=== PATIENT | male | born 1985 | race Caucasian/White ===

== ENCOUNTER 2019-04-30 00:58 | Emergency (ER) | payer SELFPAY ==
--- NOTE | 2019-04-30 01:37 | PDOC ---
History of Present Illness - General Stated Complaint: VOMIT AND DIARRHEA Time Seen by Provider: 04/30/19 01:37 History Source: Patient Exam Limitations: No Limitations - History of Present Illness Initial Comments: 34 year old male with no PMH, admitted to using marijuana presented to ED for nausea/vomiting/diarrhea since last night. Pt reported prior to development of symptoms he ingested a large amount of varied leftovers from Thanksgiving. Pt reported 4-5 episodes of vomiting, nonbloody. Pt reported his diarrhea is loose/ watery brown stool. Pt denied abdominal surgical history, recent travel outside the country, sick contact, abdominal pain, back pain, fever. Pt reported he did use Marijuana yesterday. Pt denied ETOH use or abuse. ROS General: denied fever, chills, generalized weakness. HEENT: denied sore throat, rhinorrhea, ear pain. Cardiovascular: denied chest pain, palpitations, syncope, diaphoresis. Respiratory: denied shortness of breath, cough, sputum production, hemoptysis. Gastrointestinal: admitted tonausea, vomiting, diarrhea. denied abdominal pain, constipation, blood in stool. Genitourinary: denied dysuria, increased urinary frequency, hematuria, urinary incontinence, flank pain. Back: denied back pain. Musculoskeletal: denied joint pain, muscle pain, joint swelling. Neurological: denied headache, dizziness, numbness, tingling, weakness. Integumentary: denied rash, laceration, abrasion. Hematologic/Lymphatic: denied bruising or bleeding. PE Constitutional: Well-nourished, Well-developed, appearing stated age. HEENT: head is normocephalic, atraumatic. EOMI. PERRLA. Neck: supple. Full ROM. Cardiovascular: regular heart rhythm. no murmurs. no pericardial friction rub. Respiratory: clear to auscultation bilaterally. no crackles, rhonchi or wheezing. no stridor. Gastrointestinal: soft, nontender. normal bowel sounds. no rebound, guarding, masses. Extremities: peripheral pulses intact. no lower extremity edema. Neurological: CN 2-12 grossly intact. moves all four extremities. Psych: awake, alert, oriented x3. follows commands. answers questions appropriately. Past History - Past Medical History Allergies/Adverse Reactions: Allergies Allergy/AdvReac Type Severity Reaction Status Date / Time No Known Allergies Allergy Verified 04/30/19 02:14 ED Treatment Course - LABORATORY CBC & Chemistry Diagram: 04/30/19 02:00 04/30/19 02:00 Medical Decision Making - Medical Decision Making 34 year old male with above PMH presented to ED for nausea/vomiting/diarrhea since last night after ingesting left over thanksgiving food, also uses marijuana recreationally. Initial Vital Signs Temp Pulse Resp BP Pulse Ox 97.9 F 74 18 135/85 100 04/30/19 01:40 04/30/19 01:40 04/30/19 01:40 04/30/19 01:40 04/30/19 01:40 Afebrile. No tachycardia. No tachypnea. Mild hypertension. No hypoxia on room air. Labs ordered: CBC, CMP, mag Imaging ordered: none Medications ordered: pepcid, maalox, zofran, normal saline bolus 1000 cc once 04/30/19 03:16 CBC WBC 8.9 K/mm3 (4.0-10.0) 04/30/19 02:00 RBC 4.74 M/mm3 (4.00-5.60) 04/30/19 02:00 Hgb 13.9 GM/dL (11.7-16.9) 04/30/19 02:00 Hct 41.4 % (35.4-49) 04/30/19 02:00 MCV 87.3 fl (80-96) 04/30/19 02:00 MCH 29.3 pg (25.7-33.7) 04/30/19 02:00 MCHC 33.6 g/dl (32.0-35.9) 04/30/19 02:00 RDW 12.9 % (11.9-15.9) 04/30/19 02:00 Plt Count 197 K/MM3 (134-434) 04/30/19 02:00 MPV 8.7 fl (7.5-11.1) 04/30/19 02:00 Absolute Neuts (auto) 6.4 K/mm3 (1.5-8.0) 04/30/19 02:00 Neutrophils % 71.7 % (42.8-82.8) 04/30/19 02:00 Lymphocytes % 20.8 % (8-40) 04/30/19 02:00 Monocytes % 4.9 % (3.8-10.2) 04/30/19 02:00 Eosinophils % 2.0 % (0-4.5) 04/30/19 02:00 Basophils % 0.6 % (0-2.0) 04/30/19 02:00 Nucleated RBC % 0 % (0-0) 04/30/19 02:00 CMP Sodium 142 mmol/L (136-145) 04/30/19 02:00 Potassium 3.9 mmol/L (3.5-5.1) 04/30/19 02:00 Chloride 108 mmol/L (98-107) H 04/30/19 02:00 Carbon Dioxide 29 mmol/L (21-32) 04/30/19 02:00 Anion Gap 5 MMOL/L (8-16) L 04/30/19 02:00 BUN 12.1 mg/dL (7-18) 04/30/19 02:00 Creatinine 0.8 mg/dL (0.55-1.3) 04/30/19 02:00 Est GFR (CKD-EPI)AfAm 136.03 04/30/19 02:00 Est GFR (CKD-EPI)NonAf 117.37 04/30/19 02:00 Random Glucose 92 mg/dL (74-106) 04/30/19 02:00 Calcium 9.5 mg/dL (8.5-10.1) 04/30/19 02:00 Magnesium 1.9 mg/dL (1.8-2.4) 04/30/19 02:00 Total Bilirubin 0.7 mg/dL (0.2-1) 04/30/19 02:00 AST 12 U/L (15-37) L 04/30/19 02:00 ALT 24 U/L (13-61) 04/30/19 02:00 Alkaline Phosphatase 60 U/L (45-117) 04/30/19 02:00 Total Protein 7.4 g/dl (6.4-8.2) 04/30/19 02:00 Albumin 3.8 g/dl (3.4-5.0) 04/30/19 02:00 No leukocytosis. No anemia. No electrolyte abnormalities. No GONZALEZ. No transaminitis. Pt reported improvement of nausea/vomiting, no incidents in the ED. Pt reported diarrhea still present. Pt reported no abdominal pain. Pt tolerate PO challenge, educated on bland diet and return precautions. Pt stable for discharge with prescription for Zofran and close PCP F/U. Discharge - Discharge Information Problems reviewed: Yes Clinical Impression/Diagnosis: Nausea vomiting and diarrhea Condition: Improved Disposition: HOME - Admission No - Follow up/Referral - Patient Discharge Instructions Patient Printed Discharge Instructions: Nausea and Vomiting-Adult, DI for Diarrhea and Traveler's Diarrhea -- Adult Additional Instructions: Follow up with your primary care doctor within 3 days. Your care is not complete until you follow up. I have sent a prescription to your pharmacy for Zofran, an anti-nausea medication. Take as advised on label. Take Tylenol over the counter for pain. Take as advised on label. Avoid ibuprofen/advil/motrin/aleve as these medications can irritate your stomach. Tylenol is not the same medication. Return to the Emergency Department for continuous vomiting, increasing pain, blood in vomit, blood in stool, lightheadedness, chest pain, shortness of breath , fever or any other new, worsening or concerning symptoms. - Post Discharge Activity Work/Back to School Note: Back to Work
[2019-04-30 01:47] VITALS: BP 135/85; PULSE 74; TEMP 97.9; BMI 32.5
[2019-04-30] MEDS ORDERED: ONDANSETRON 4 MG/2 ML VIAL IVPUSH ONE (01:48)
[2019-04-30] MEDS ORDERED: MAG HYDROX/AL HYDROX/SIMETH 30 ML UNIT-DOSE CUP PO ONE (01:48)
[2019-04-30] MEDS ORDERED: SODIUM CHLORIDE 1,000 ML IV STA (01:48)
[2019-04-30] MEDS ORDERED: FAMOTIDINE 20 MG/50 ML IVPB 20 MG/50 ML MG IVPB ONE (01:48)
[2019-04-30 02:21] LABS: BASO % 0.6 % (0-2.0); HEMATOCRIT 41.4 % (35.4-49); HEMOGLOBIN 13.9 GM/dL (11.7-16.9); LYMPH % 20.8 % (8-40); MCH 29.3 pg (25.7-33.7); MCHC 33.6 g/dl (32.0-35.9); MEAN CELL VOLUME 87.3 fl (80-96); MEAN PLT VOLUME 8.7 fl (7.5-11.1); MONO % 4.9 % (3.8-10.2); NEUT % 71.7 % (42.8-82.8); PLATELET COUNT 197 K/MM3 (134-434); RBC 4.74 M/mm3 (4.00-5.60); RDW 12.9 % (11.9-15.9); WHITE BLOOD COUNT 8.9 K/mm3 (4.0-10.0)
--- NOTE | 2019-04-30 02:39 | PDOC ---
Attending Attestation - Resident Resident Name: Amber Vidal - ED Attending Attestation I have performed the following: I have examined & evaluated the patient, The case was reviewed & discussed with the resident, I agree w/resident's findings & plan, Exceptions are as noted - HPI HPI: 04/30/19 02:36 34 M with no PMH presenting to ED with nausea,vomiting, and diarrhea. Pt states that his symptoms started last night after eating Thanksgiving leftovers. Pt reports 4 episodes of nonbloody vomiting. Also reports several episodes of watery brown stool. Denies abdominal pain. Denies F/C. Pt endorses frequent marijuana use. Denies ETOH or other drug use. - Physicial Exam PE: 04/30/19 02:37 "GENERAL: Awake, alert, and fully oriented, in no acute distress. HEAD: No signs of trauma EYES: PERRLA, EOMI, sclera anicteric, conjunctiva clear ENT: Auricles normal inspection, hearing grossly normal, nares patent, oropharynx clear without exudates. Moist mucosa NECK: Nontender, no stepoffs, Normal ROM, supple, no lymphadenopathy, JVD, or masses LUNGS: Breath sounds equal, clear to auscultation bilaterally. No wheezes, and no crackles HEART: Regular rate and rhythm, normal S1 and S2, no murmurs, rubs or gallops ABDOMEN: Soft, nontender, normoactive bowel sounds. No guarding, no rebound. No masses EXTREMITIES: Normal range of motion, no edema. No clubbing or cyanosis. No cords, erythema, or tenderness NEUROLOGICAL: Cranial nerves II through XII intact. 5/5 strength and sensation in all extremities, Normal speech, normal gait, normal cerebellar function SKIN: Warm, Dry, normal turgor, no rashes or lesions noted. - Medical Decision Making 04/30/19 02:37 34 M with N/V/D. Suspect gastroenteritis. Abdomen is benign. - Labs - GI cocktail 04/30/19 03:22 Labs wnl Pt tolerating PO, abdomen still benign Pt is well appearing, with normal vitals. Clinically stable for DC at this time. I discussed the physical exam findings, ancillary test results and final diagnoses with the patient. I answered all of the patient's questions. The patient was satisfied with the care received and felt comfortable with the discharge plan and treatment plan. The patient agrees to follow up with the primary care physician within 24-72 hours.
[2019-04-30 02:58] LABS: ALBUMIN 3.8 g/dl (3.4-5.0); ALK PHOS 60 U/L (45-117); ANION GAP 5 MMOL/L (8-16); BILIRUBIN,TOTAL 0.7 mg/dL (0.2-1); BLOOD UREA NITROGEN 12.1 mg/dL (7-18); CALCIUM 9.5 mg/dL (8.5-10.1); CHLORIDE 108 mmol/L (98-107); CO2 29 mmol/L (21-32); CREATININE 0.8 mg/dL (0.55-1.3); GLUCOSE,RANDOM 92 mg/dL (74-106); POTASSIUM 3.9 mmol/L (3.5-5.1); SGOT/AST 12 U/L (15-37); SGPT/ALT 24 U/L (13-61); SODIUM 142 mmol/L (136-145); TOT PROT 7.4 g/dl (6.4-8.2)
== END 2019-04-30 03:30 | disposition home or self-care (01) ==
LOC: JER 00:58
PROC: 3E033GC Introduction of Other Therapeutic Substance into Peripheral Vein, Percutaneous Approach (ICD-10-PCS; principal; 2019-04-30)
DX: R11.2 Nausea with vomiting, unspecified (principal); R19.7 Diarrhea, unspecified
CPT/HCPCS: 36415; 80053; 80307; 83690; 83735; 85025; 99282-25; J7030